=== PATIENT | male | born 1960 | race Caucasian/White ===

== ENCOUNTER 2019-03-14 12:53 | Day surgery (SDC) | payer OTHER, SELFPAY ==
[2019-03-14 13:09] VITALS: BP 152/89; PULSE 69; RESP 16; TEMP 36.7; O2SAT 94; BMI 37.2
[2019-03-14] MEDS: SODIUM CHLORIDE 0.9% 1,000 ML 200 ML IV (13:26)
--- NOTE | 2019-03-14 13:40 | PM.HP.1 ---
History of Present Illness Date Patient Seen: 03/14/19 Time Patient Seen: 13:40 Chief complaint: [id number] Narrative: Patient is here for screening colonoscopy 1st colonoscopy. No melena no hematochezia no abdominal pain Patient History Social History household members: spouse Family & Social History Social History: household members spouse Meds Home Medications Medication Instructions Recorded Confirmed Type No Known Home Medications 03/14/19 03/14/19 History Allergies Allergy/AdvReac Type Severity Reaction Status Date / Time No Known Drug Allergies Allergy Verified 03/14/19 13:27 Review of Systems Review of Systems All systems reviewed & are unremarkable except as noted in HPI and below Exam Vital Signs (past 8 hours): - 03/14/19 13:09 Temperature 98.1 F Pulse Rate 69 Respiratory Rate 16 Blood Pressure 152/89 H Pulse Oximetry 94 Oxygen Delivery Method Room Air Narrative Exam Narrative: Patient is alert and oriented has no pain Lungs are clear with no rales or wheezes Heart regular rhythm no murmur Abdomen soft nontender no organomegaly Rectal will be done at colonoscopy Assessment & Plan Assessment & Plan narrative: Patient is here for his 1st screening colonoscopy. The risks of bleeding perforation were explained and patient understands and agrees with no further questions.
[2019-03-14] MEDS: fentaNYL 250 MCG/5 ML INJ IV (14:23)
[2019-03-14] MEDS: MIDAZOLAM 5 MG/5 ML VIAL IV (14:24)
--- NOTE | 2019-03-14 14:46 | PM.OP.ENDO ---
Operative Date/Time/Diagnoses Date of procedure: 03/14/19 Time of procedure: 14:46 Pre-op diagnosis: Screening colonoscopy Post-op diagnosis: same Procedure & Clinicians Study performed: Total colonoscopy to the cecum patient has a normal colon Same procedure as scheduled: Yes Surgeon: Ramsey Robert Procedure Notes SCOAP/Timeout: Was done Procedure in detail: The patient was properly identified during surgical pause. He was given a total of 6 mg of Versed and 200 micro g of fentanyl and the procedure was very well tolerated. The flexible fiberoptic colonoscope inserted transanally to the cecum. Patient has no diverticulosis no polyps no tumors no ulcerations. He had a normal exam. Well-tolerated Scope withdrawal time: 10 Sedation minutes: 22 Specimen(s): none sent Complications: none Impression: Normal colon Recommendations: Colonscopy in 10 years Disposition: PACU
[2019-03-14 14:50] VITALS: BP 150/93; PULSE 63; RESP 17; TEMP 36.2; O2SAT 95
[2019-03-14 14:55] VITALS: BP 131/99; PULSE 770; RESP 16; O2SAT 96
[2019-03-14 15:00] VITALS: BP 144/66; PULSE 67; RESP 15; O2SAT 94
--- NOTE | 2019-03-14 15:00 | SUR.PHASEI ---
1455 Denies pain/nausea, abdomen soft. [place]:45 ferry. HOB elevated, juice given.
[2019-03-14 15:04] VITALS: BP 132/83; PULSE 63; RESP 20; TEMP 36.3; O2SAT 95
--- NOTE | 2019-03-14 16:55 | SUR.PHASEII ---
1515 Patient home with , A&O, excited to be [place] the earlier ferry. No pain, nausea, light-headedness. Stable on feet. Questions answered. Stable.
== END 2019-03-14 15:15 | disposition home or self-care (01) ==
PROVIDERS: PCP Family Medicine; Visit Provider Surgery
PROC: 0DJD8ZZ Inspection of Lower Intestinal Tract, Via Natural or Artificial Opening Endoscopic (ICD-10-PCS; CPT 45378; principal; 2019-03-14 14:30)
DX: Z12.11 Encounter for screening for malignant neoplasm of colon (principal)
CPT/HCPCS: G0121; 99152; J2250; J3010